=== PATIENT | female | born 1965 | race American Indian/Alaskan Native ===

== ENCOUNTER 2016-07-16 11:32 | Inpatient (IN) | payer BC ==
[2016-07-03 10:14] VITALS: BMI 22.4
[2016-07-16] MEDS ORDERED: Lactated Ringer's 1,000 ML IV ONE ×5 (13:13→17:20)
[2016-07-16] MEDS ORDERED: Propofol 10 mg/ml Inj (20 ML) ONE ×2 (13:27→17:35)
[2016-07-16] MEDS ORDERED: Midazolam 2 MG/2 ML VIAL ONE (13:27)
[2016-07-16] MEDS ORDERED: Rocuronium 10 mg/ml (5 ml) ONE ×2 (13:30→16:16)
[2016-07-16] MEDS ORDERED: ceFAZolin IV 2 gm in Dextrose 1 GM/50 ML BAG IVPB ONE (13:39)
[2016-07-16] MEDS ORDERED: Sodium Chloride 0.9% 1,000 ML IV ONE (16:14)
[2016-07-16] MEDS ORDERED: ceFAZolin IV 1 gm in Dextrose 1 GM/50 ML BAG IVPB ONE (17:07)
[2016-07-16] MEDS ORDERED: Methylene Blue 10 mg/mL(10ml) IV ONE (17:10)
[2016-07-16] MEDS ORDERED: Neostigmine Methylsulfate 3mg/3ml Syringe IV ONE (17:22)
[2016-07-16] MEDS ORDERED: Morphine 4 MG/ML VIAL ONE (17:32)
--- NOTE | 2016-07-16 17:51 | PCM.SURG1 ---
Surgeon's Initial Post Op Note - Surgeon's Notes Surgeon: Tricia Fernandez MD Soil And Plant Scientist: Luis Mondragon MD Type of Anesthesia: General Endo Pre-Operative Diagnosis: Abnormal uterine bleeding, pelvic pain, hydrosalpinx Operative Findings: enlarged 14 week size uterus normal right fallopian tube, normla ovaries bilaterally, normal left fallopian tube with adhesions, dense adhesions of omentum to periteonum, elio bladder adhesions to lower uterien segment, over 2 hours to lyse adhesions, bilateral uretral jets on cystoscopy. Dr Luis Mondragon was surgical assisatnat and was present for entire case and essential in gaining entry, retraciton, exposure, obtatining hemostasis, lysing adhesions, removing speciment,closing all layers. Post-Operative Diagnosis: abnormal uterine bleeding, pelvic pain Operation Performed: Supracervical hysterectomy, right salpingectomy, lysis of adhesions, left paratubal cystectomy, cystoscopy Specimen/Specimens Removed: uterus, portion of cervix, right fallopian tube, left paratubal cyst Estimated Blood Loss: EBL {In ML}: 600 (urine output 700) Blood Products Given: N/A Drains Used: No Drains Date of Surgery/Procedure: 07/16/16 Time of Surgery/Procedure: 14:00
[2016-07-16] MEDS: HYDROmorphone 0.5 mg/0.5 ml ISec IVP PRN ×3 (18:09→18:50)
[2016-07-16] MEDS: Lactated Ringer's 1,000 ML IV SCH (20:25)
--- NOTE | 2016-07-16 21:00 | OP ---
PROCEDURE DATE: 07/16/2016 SURGEON: Dr. Tricia Fernandez. FURNACE COMBUSTION ANALYST: Dr. Luis Mondragon. ANESTHESIA: General endotracheal. PREOPERATIVE DIAGNOSIS: Abnormal uterine bleeding, pelvic pain, hydrosalpinx. OPERATIVE FINDINGS: Enlarged 14-week size uterus, normal right fallopian tube, normal ovaries bilate rally, normal left fallopian tube with adhesions, dense adhesions of omentum to the peritoneum, dense bladder adhesions to the lower uterine segment. Over 2 hours for lysis of adhesions. Bilateral ure teral jets on cystoscopy. Dr. Luis Mondragon was the surgical scheduler and was present for the entire case and was essential to gaining entry, retraction, exposure, obtaining hemostasis, lysing adhesions, removing specimen and c losing all layers. POSTOPERATIVE DIAGNOSIS: Abnormal uterine bleeding, pelvic pain, pelvic adhesions. OPERATIONS PERFORMED: Supracervical hysterectomy, right salpingectomy, lysis of adhesions, left para tubal cystectomy, cystoscopy. SPECIMEN REMOVED: Uterus, portion of cervix, right fallopian tube, left paratubal cyst. ESTIMATED BLOOD LOSS: 600 mL. URINE OUTPUT: 700 mL BLOOD PRODUCTS: None. COMPLICATIONS: None. DESCRIPTION OF PROCEDURE: The patient was taken to the operating room and placed in the dorsal supin e position. The patient then underwent general endotracheal intubation without complications and exa m under anesthesia with the above-mentioned findings. The patient was then prepped and draped in the usual normal sterile fashion. Sequential devices were placed on her lower extremities bilaterally, and a Vora catheter was anchored to closed gravity drainage. A Pfannenstiel skin incision was made with the scalpel and carried in line to the underlying fascia with the scalpel. The fascia was incis ed in midline. Incision extended laterally with Bovie. There were dense fascial adhesions noted whi ch were carefully lysed using the Rose scissors. The superior aspect of the fascial incision was gra sped, elevated with William clamps and the underlying musculature dissected off bluntly with use of Ma caryn scissors. Attention was then turned to the inferior incision which, in a similar fashion, was gra sped, elevated with William clamps and the underlying musculature was dissected off with the Rose. Th e peritoneum was identified and there were dense adhesions noted which was entered in a clear space, and after careful manipulation to avoid any bowel or other organs, peritoneum was identified, elevate d and entered with the Metzenbaum scissors. Upon entering the peritoneal cavity, the incision was ex tended laterally and superiorly until there was better visualization. There were dense omental adhes ions noted to be adherent to the peritoneal cavity overlying the uterus which were carefully lysed us ing Flavia clamps and free ties. Upon lysing careful omentum adhesions, the uterus was then able to b e carefully exteriorized and hysterectomy was carried out by double clamping the round ligaments, exc ising with a scalpel and ligated with 0 Vicryl suture. The right anterior and posterior sheaths of t he broad ligament were sharply dissected with the curved Rose scissors and the retroperitoneal space developed with blunt dissection. The ureter was palpated. A rent was made superior to this in the p osterior aspect of the broad ligament. The uteroovarian ligament was then clamped and excised with a scalpel, ligated first with a free tie 0 Vicryl suture followed by modified 0 Vicryl suture. Follow ing this, after the bladder flap was created and the dense bladder adhesions were carefully removed, after a retrograde fill with normal saline was performed and there was no cystotomy noted, the bladde r adhesions were carefully noted and the bladder was then desufflated. The uterine vessels were then carefully skeletonized. A similar procedure was carried on the left side where the left round ligam ent was doubly clamped, excised with scalpel. The anterior leaf of the broad ligament was incised sh arply with the Metzenbaum scissors. The retroperitoneal space was developed. There were dense adhes ions noted between the left tube and ovary with bowel adhesions which, upon careful manipulation, wou ld ooze. Therefore, pressure was applied with good hemostasis noted. The round ligament, uteroovari an ligament, ____ ovarian ligament were ____ clamped and excised with the scalpel. The pedicle was f irst ligated with a free tie of 0 Vicryl suture followed by modified [id number]-[id number] sutures. The ut erine vessels were then skeletonized. Cervicovesical space was then sharply developed. The uterosac ral ligaments were doubly clamped with a curved Gilmar clamp. The pedicles were formed with a scalpe l and ligated with 0 Vicryl sutures bilaterally. Hysterectomy was then carried out with straight Hea patsy clamps forming the pedicles, excising them with the scalpel and ligating them with 0 Vicryl sutur e. Secondary to the depth of the pelvis and the length of the cervix, it was felt that a supracervic al hysterectomy was indicated, also due to bleeding at any type of manipulation of lysing sites. A p ortion of the cervix was then surgically amputated with the uterus with both sharp dissection and wit h Bovie cautery and with the use of Edwin scissors. The angles were ligated in a modified Gilmar stitch fashion incorporating the uterus and incorporating the cervical cuff. The cervix was oversew n with [id number] sutures which was incorporating the uterosacral ligaments bilaterally. Specim en was handed off and sent to pathology for histopathologic examination. Irrigation was used and hem ostasis confirmed. The right fallopian tube was then carefully dissected and adhesions were lysed an d removed with a Flavia clamp and free tied with 0 Vicryl suture. There was good hemostasis noted. T he right ovary appeared normal and was left in place. The left ovary had dense adhesions and a left paratubal superficial cyst was carefully removed and there was good hemostasis noted. Additional kiersten st laparotomy sponges that were initially placed at the beginning of the procedure to pack the bowel were carefully removed and the count was correct. Irrigation was then performed again and there was good hemostasis noted. The parietal peritoneum was closed with 2-0 chromic suture and irrigation was used and hemostasis again confirmed. The rectus was reapproximated and closed with 2-0 chromic in a n interrupted manner. The fascia was reapproximated and closed with 0 Vicryl in a running continuous fashion. Subcutaneous tissues were closed with 2-0 plain in an interrupted manner, and a subcuticul ar stitch was placed of 3-0 Vicryl suture reapproximating the skin. The skin incision was then clean ed and properly dressed. A sterile dressing with Telfa was applied to the dressing. Following this, attention was then turned to the peritoneum in which the patient was reprepped and draped in the usu al normal sterile fashion. A 21-Bruneian cystoscope was inserted under camera vision after the Vora c atheter was removed. The urethra was unremarkable. The scope was passed into the bladder. The blad will mucosa appeared normal throughout. There were bilateral ureteral jets noted from both ureters. Following this, the cystoscope was then removed. A new Vora catheter was then reinserted. The mali ent tolerated the procedure well. At the end of the procedure, all needle, sponge and instrument cou nts were noted to be correct x 2. The patient tolerated the procedure well and was [facility] in stable condition. Tricia Fernandez MD cc: [id number] TT: 07/16/2016 20:58:59 mn
[2016-07-17 00:09] VITALS: O2SAT 98
[2016-07-17] MEDS ORDERED: ceFAZolin IV 1 gm in Dextrose 1 GM/50 ML BAG IVPB SCH ×3 (01:00→18:00)
[2016-07-17] MEDS: Lactated Ringer's 1,000 ML IV SCH (04:47)
[2016-07-17 07:26] LABS: HEMATOCRIT 30.5 % (34.0-47.0); MEAN CELL VOLUME 79.9 fL (81.0-99.0); MEAN CORPUSCULAR HEMOGLOBIN 26.1 pg (27.0-31.0); MEAN CORPUSCULAR HGB CONC 32.7 g/dL (33.0-37.0); MEAN PLATELET VOLUME 8.9 fL (7.2-11.7); RED CELL DISTRIBUTION WIDTH 12.4 % (11.5-14.5)
[2016-07-17 07:29] LABS: WHITE BLOOD COUNT 14.4 K/uL (4.8-10.8)
[2016-07-17 07:51] LABS: CHLORIDE 104 mmol/L (98-107); POTASSIUM 3.9 mmol/L (3.6-5.2); SODIUM 138 mmol/L (132-148)
[2016-07-17 07:54] LABS: BLOOD UREA NITROGEN 10 mg/dL (7-17); CALCIUM 8.9 mg/dl (8.6-10.4); CARBON DIOXIDE 24 mmol/L (22-30); GFR AFRICAN-AMERICAN > 60; GLUCOSE,RANDOM 93 mg/dL (65-105)
[2016-07-17] MEDS ORDERED: Oxycodone/Acetaminophen 5/325 mg Tab PO PRN ×2 (08:04)
--- NOTE | 2016-07-17 08:08 | CP.PCM.PN ---
Subjective - Date & Time of Evaluation Date of Evaluation: 07/17/16 Time of Evaluation: 08:10 - Subjective Subjective: pt was seen at bed side. pain under control, no n/v, tolerating deit, lim still in, no flatus abd dressing clean and dry abd soft ext no edema,no calf ten Objective - Vital Signs/Intake and Output Vital Signs (last 24 hours): Temp Pulse Resp BP Pulse Ox 98.0 F 110 H 20 145/83 98 07/17/16 00:00 07/17/16 00:00 07/17/16 00:00 07/17/16 00:00 07/17/16 00:00 Intake and Output: 07/17/16 07/17/16 06:59 18:59 Intake Total 1350 Output Total 950 Balance 400 - Medications Medications: Current Medications Lactated Ringer's (Lactated Ringer's) 1,000 mls @ 125 mls/hr IV .Q8H [facility]ET[facility] Last Admin: 07/17/16 04:47 Dose: 125 mls/hr Cefazolin Sodium/Dextrose (Ancef Iv 1 Gm Duplex) 1 gm in 50 mls @ 100 mls/hr IVPB Q8 [facility] Stop: 07/17/16 14:29 Ibuprofen (Motrin Tab) 600 mg PO Q6 PRN PRN Reason: Pain, Mild (1-3) Oxycodone/Acetaminophen (Percocet 5/325 Mg Tab) 1 tab PO Q4H PRN PRN Reason: Pain, moderate (4-7) Stop: 07/20/16 08:05 Oxycodone/Acetaminophen (Percocet 5/325 Mg Tab) 2 tab PO Q6H PRN PRN Reason: Pain, severe (8-10) Stop: 07/20/16 08:05 - Labs Labs: 07/17/16 07:12 07/17/16 07:12 Assessment and Plan - Assessment and Plan (Free Text) Assessment: 51 yr s/p hystrectomy 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
[2016-07-17] MEDS ORDERED: DiphenhydrAMINE 50 mg/ml Inj IVP ONE (15:45)
[2016-07-17] MEDS: Oxycodone/Acetaminophen 5/325 mg Tab PO PRN (21:11)
[2016-07-18 00:14] VITALS: TEMP 99.3
[2016-07-18] MEDS: Oxycodone/Acetaminophen 5/325 mg Tab PO PRN ×2 (03:49→10:34)
[2016-07-18 08:41] VITALS: PULSE 111; RESP 18
[2016-07-18] MEDS ORDERED: Simethicone 80 mg Chewtab PO SCH (10:00)
--- NOTE | 2016-07-18 13:26 | CP.PCM.PN ---
Subjective - Date & Time of Evaluation Date of Evaluation: 07/18/16 Time of Evaluation: 13:00 - Subjective Subjective: pt seen and examined and reports pian controlled with medication. pt reports ambuating but not much, not passing flatus, no vaginl bleedin pt tolerating regular diet, voiding without difficulty and denies any fevers, chlils, nause, vomiting, cp, sob, lightheadness. Objective - Vital Signs/Intake and Output Vital Signs (last 24 hours): Temp Pulse Resp BP Pulse Ox 99.3 F 111 H 18 135/84 98 07/18/16 08:39 07/18/16 08:39 07/18/16 08:39 07/18/16 08:39 07/18/16 08:39 Intake and Output: 07/18/16 07/18/16 06:59 18:59 Output Total 600 Balance -600 - Medications Medications: Current Medications Docusate Sodium (Colace) 100 mg PO BID [facility] Last Admin: 07/18/16 09:44 Dose: 100 mg Hydrochlorothiazide (Microzide) 12.5 mg PO DAILY [facility] Last Admin: 07/18/16 10:28 Dose: 12.5 mg Lactated Ringer's (Lactated Ringer's) 1,000 mls @ 125 mls/hr IV .Q8H [facility] Last Admin: 07/17/16 04:47 Dose: 125 mls/hr Losartan Potassium (Cozaar) 50 mg PO DAILY [facility] Last Admin: 07/18/16 10:28 Dose: 50 mg Ondansetron HCl (Zofran Inj) 4 mg IVP Q4 PRN PRN Reason: Nausea/Vomiting Oxycodone/Acetaminophen (Percocet 5/325 Mg Tab) 2 tab PO Q6H PRN PRN Reason: Pain, severe (8-10) Stop: 07/20/16 20:31 Last Admin: 07/18/16 10:34 Dose: 2 tab Simethicone (Mylicon Chew Tab) 80 mg PO QID [facility] Last Admin: 07/18/16 09:42 Dose: 80 mg Zolpidem Tartrate (Ambien) 5 mg PO HS PRN PRN Reason: Insomnia - Labs Labs: 07/17/16 07:12 07/17/16 07:12 - Constitutional Appears: Well, Non-toxic - Head Exam Head Exam: ATRAUMATIC, NORMAL INSPECTION - Eye Exam Eye Exam: EOMI, Normal appearance Pupil Exam: NORMAL ACCOMODATION - ENT Exam ENT Exam: Mucous Membranes Moist, Normal Exam - Respiratory Exam Respiratory Exam: Clear to Ausculation Bilateral, NORMAL BREATHING PATTERN - Cardiovascular Exam Cardiovascular Exam: REGULAR RHYTHM, +S1, +S2 - GI/Abdominal Exam GI & Abdominal Exam: Soft, Normal Bowel Sounds Additional comments: non tender, no guarding, no rebound tenderness, no rigidity incsion c/d/i no vagnal bleeding - Extremities Exam Extremities Exam: Full ROM, Normal Inspection - Back Exam Back Exam: NORMAL INSPECTION - Neurological Exam Neurological Exam: Alert, Awake, CN II-XII Intact, Normal Gait, Oriented x3 Assessment and Plan (1) Status post hysterectomy Assessment & Plan: 1. Pain Managment Percocet/Motrin 2. Regular diet 3. Encourage ambuation 4, Incentive spirometer, abodminal binder 5. Simethicone, milk of magnesia 6. anticpate d/c in AM Status: Acute
--- NOTE | 2016-07-18 13:46 | CP.PCM.DIS ---
Provider - Provider Date of Admission: 07/16/16 11:32 Attending physician: Tricia Fernandez MD Time Spent in preparation of Discharge (in minutes): 30 Diagnosis - Discharge Diagnosis (1) Status post hysterectomy Status: Acute Priority: Medium Hospital Course - Lab Results Lab Results: Most Recent Lab Values WBC 14.4 K/uL (4.8-10.8) H D 07/17/16 07:12 RBC 3.82 Mil/uL (3.80-5.20) 07/17/16 07:12 Hgb 10.0 g/dL (11.0-16.0) L D 07/17/16 07:12 Hct 30.5 % (34.0-47.0) L 07/17/16 07:12 MCV 79.9 fL (81.0-99.0) L 07/17/16 07:12 MCH 26.1 pg (27.0-31.0) L 07/17/16 07:12 MCHC 32.7 g/dL (33.0-37.0) L 07/17/16 07:12 RDW 12.4 % (11.5-14.5) 07/17/16 07:12 Plt Count 270 K/uL (130-400) 07/17/16 07:12 MPV 8.9 fL (7.2-11.7) 07/17/16 07:12 Sodium 138 mmol/L (132-148) 07/17/16 07:12 Potassium 3.9 mmol/L (3.6-5.2) 07/17/16 07:12 Chloride 104 mmol/L (98-107) 07/17/16 07:12 Carbon Dioxide 24 mmol/L (22-30) 07/17/16 07:12 Anion Gap 13 (10-20) 07/17/16 07:12 BUN 10 mg/dL (7-17) 07/17/16 07:12 Creatinine 0.4 MG/DL (0.7-1.2) L 07/17/16 07:12 Est GFR ( Amer) > 60 07/17/16 07:12 Est GFR (Non-Af Amer) > 60 07/17/16 07:12 Random Glucose 93 mg/dL (65-105) 07/17/16 07:12 Calcium 8.9 mg/dl (8.6-10.4) 07/17/16 07:12 Blood Type A POSITIVE 07/16/16 12:48 Antibody Screen Negative 07/16/16 12:48 - Hospital Course Hospital Course: normal postoperative course Discharge Exam - Head Exam Head Exam: ATRAUMATIC, NORMAL INSPECTION - Eye Exam Eye Exam: EOMI, Normal appearance - ENT Exam ENT Exam: Mucous Membranes Dry, Mucous Membranes Moist - Respiratory Exam Respiratory Exam: NORMAL BREATHING PATTERN - Cardiovascular Exam Cardiovascular Exam: REGULAR RHYTHM, +S1, +S2 - GI/Abdominal Exam GI & Abdominal Exam: Normal Bowel Sounds, Unremarkable - Extremities Exam Extremities exam: normal inspection - Neurological Exam Neurological exam: CN II-XII Intact, Normal Gait, Oriented x3 Discharge Plan - Discharge Medications Prescriptions: Oxycodone HCl/Acetaminophen [Endocet 10-325 mg Tablet] 1 each PO Q6 #20 tablet - Follow Up Plan Condition: GOOD Disposition: HOME/ ROUTINE Patient education suggested?: Yes
[2016-07-18 17:41] VITALS: BP 146/84
== END 2016-07-18 16:00 | disposition home or self-care (01) | DRG 743 ==
LOC: C.9S 11:32 → C.4M 19:55
PROVIDERS: ADMIT Obstetrics & Gynecology; ATTEND Obstetrics & Gynecology
PROC: 0UB40ZZ Excision of Uterine Supporting Structure, Open Approach (ICD-10-PCS; 2016-07-16)
PROC: 0JNC0ZZ Release Pelvic Region Subcutaneous Tissue and Fascia, Open Approach (ICD-10-PCS; 2016-07-16)
PROC: 0UN40ZZ Release Uterine Supporting Structure, Open Approach (ICD-10-PCS; 2016-07-16)
PROC: 0TJB8ZZ Inspection of Bladder, Via Natural or Artificial Opening Endoscopic (ICD-10-PCS; 2016-07-16)
PROC: 0UT90ZZ Resection of Uterus, Open Approach (ICD-10-PCS; principal; 2016-07-16 14:05)
PROC: 0UT50ZZ Resection of Right Fallopian Tube, Open Approach (ICD-10-PCS; 2016-07-16 14:05)
DX: N93.9 Abnormal uterine and vaginal bleeding, unspecified (principal); D25.1 Intramural leiomyoma of uterus; N83.8 Other noninflammatory disorders of ovary, fallopian tube and broad ligament; N73.6 Female pelvic peritoneal adhesions (postinfective); R10.2 Pelvic and perineal pain